=== PATIENT | male | born 2000 | race Caucasian/White ===

== ENCOUNTER 2021-04-08 14:34 | Inpatient (IN) | payer OTHER ==
[~2021-04-08 14:34] MED LIST: Iopamidol-370 76% 500 ML 1 ML ONE
[2021-04-08] MEDS ORDERED: Fentanyl 100 MCG/2 ML VIAL ONE ×3 (15:07→22:16)
[2021-04-08 15:09] LABS: #Basophils 0.1 thou/uL (0.0-0.2); #Eosinphils 0.2 thou/uL (0.0-0.7); #Lymphocytes 2.8 thou/uL (1.20-3.40); #Monocytes 0.9 thou/uL (0.11-0.59); #Neutrophils 8.6 thou/uL (1.40-6.50); %Basophils 0.5 % (0.0-1.0); %Eosinophils 1.8 % (0.0-10.0); %Monocytes 7.2 % (0.0-4.0); %Neutrophils 68.4 % (31.0-61.0); Hemoglobin 16.5 g/dL (14.0-18.0); Mean Corpuscular HGB CONC 33.7 g/dL (32.0-36.0); Mean Corpuscular Hemoglobin 29.6 pg (25.0-35.0); Mean Corpuscular Volume 87.7 fL (78.0-98.0); Mean Platelet Volume 6.8 fL (7.4-10.4); Platelet Count 282 thou/uL (130-400); RBC Distribution Width 11.8 % (11.5-14.5); Red Blood Cell (RBC) Count 5.57 mill/uL (4.00-5.20); White Blood Cell (WBC) Count 12.6 thou/uL (4.8-10.8)
[2021-04-08] MEDS ORDERED: hydrALAZINE 20 MG/ML VIAL SLOW IVP PRN (15:19)
[2021-04-08] MEDS ORDERED: Promethazine HCl 25 MG/ML VIAL IM PRN ×2 (15:19→20:13)
[2021-04-08] MEDS ORDERED: Cyclobenzaprine 10 MG TAB PO PRN (15:27)
[2021-04-08 15:32] LABS: ALT (SGPT) 30 U/L (8-55); AST (SGOT) 75 U/L (10-45); Albumin 4.5 g/dL (3.5-5.0); Alkaline Phosphatase 108 U/L (50-130); Anion Gap 13 mmol/L (10-20); BUN (Urea Nitrogen) 11 mg/dL (8.4-21.0); Bilirubin, Total 0.6 mg/dL (0.2-1.2); Calc. Creatinine Clearance 0 mL/min (70-130); Calcium 9.5 mg/dL (7.8-10.44); Carbon Dioxide 25 mmol/L (22-29); Chloride 104 mmol/L (98-107); Globulin 3.3 g/dL (2.4-3.5); Glucose 110 mg/dL (70-105); Potassium 3.8 mmol/L (3.5-5.1); Protein, Total 7.8 g/dL (6.0-8.3); Sodium 138 mmol/L (136-145)
[2021-04-08] MEDS ORDERED: Morphine 4 MG/ML VIAL ONE (16:06)
[2021-04-08] MEDS ORDERED: CEFAZOLIN 2 GM in Premix Bag 1 BAG IVPB SCH (16:30)
[2021-04-08 16:57] LABS: SARS-CoV-2 NAA Rapid Test Not Detected (NotDetected)
[2021-04-08] MEDS ORDERED: Ferrous Sulfate 325 MG TAB PO SCH (17:00)
[2021-04-08] MEDS ORDERED: HYDROmorphone 0.5 MG/0.5 ML SYRINGE ONE ×4 (17:29→21:10)
[2021-04-08] MEDS ORDERED: Fentanyl 250 MCG/5 ML VIAL ONE (17:32)
[2021-04-08] MEDS ORDERED: Glycopyrrolate 0.2 MG/ML 5 ML SYRINGE ONE (18:05)
[2021-04-08] MEDS ORDERED: Rocuronium Bromide 10 MG/ML (10ML VIAL) ONE (18:05)
[2021-04-08] MEDS ORDERED: PROPOFOL 200 MG/20 ML VIAL ONE (18:05)
[2021-04-08] MEDS ORDERED: Succinylcholine 200 MG/10 ml SYRINGE FS ONE (18:05)
[2021-04-08] MEDS ORDERED: ePHEDrine 50 MG/ML VIAL ONE (18:05)
[2021-04-08] MEDS ORDERED: Lidocaine 1% PF 5 ML VIAL ONE (18:05)
[2021-04-08] MEDS ORDERED: HYDROmorphone 2 MG/ML VIAL SLOW IVP PRN (20:13)
[2021-04-08] MEDS ORDERED: Promethazine HCl 25 MG/ML VIAL IVPB PRN (20:13)
[2021-04-08] MEDS ORDERED: Ondansetron HCl/PF 4 MG/2 ML Vial IVP PRN (20:13)
[2021-04-08] MEDS ORDERED: Ketorolac Tromethamine 30 MG/ML VIAL IVP PRN (20:13)
[2021-04-08] MEDS ORDERED: Promethazine HCl 25 MG/ML VIAL ONE (20:31)
[2021-04-08] MEDS ORDERED: TETANUS, DIPHTHERIA TOX,ADULT (TDVAX) 0.5 ML VIAL IM ONE (22:00)
[2021-04-08] MEDS: traMADol HCl 50 MG TAB PO SCH ×2 (23:54→23:58)
[2021-04-08] MEDS: Ascorbic Acid 500 mg Chewable Tablet PO SCH (23:54)
[2021-04-08] MEDS: Acetaminophen 325 MG TAB PO SCH ×2 (23:54→23:57)
[2021-04-08] MEDS: Senokot S 8.6-50 MG TAB PO SCH (23:55)
[2021-04-08] MEDS: Gabapentin 300 MG CAP PO SCH (23:58)
[2021-04-09] MEDS: Famotidine/PF 20 mg/2ml Vial SLOW IVP SCH ×2 (00:01→08:24)
[2021-04-09] MEDS: CEFAZOLIN 2 GM in Premix Bag 1 BAG IVPB SCH ×2 (00:06→08:15)
[2021-04-09 01:53] VITALS: BMI 28.8
[2021-04-09] MEDS: Morphine 2 MG/ML VIAL SLOW IVP PRN ×2 (02:14→08:20)
[2021-04-09] MEDS: traMADol HCl 50 MG TAB PO PRN (05:50)
[2021-04-09] MEDS: traMADol HCl 50 MG TAB PO SCH ×4 (05:50→23:23)
[2021-04-09] MEDS: Acetaminophen 325 MG TAB PO SCH ×4 (05:51→23:22)
[2021-04-09 06:25] LABS: INR-International Normal Ratio 1.1; Prothrombin Time 14.3 sec (12.0-14.7)
[2021-04-09 06:26] LABS: PTT 24.5 sec (22.9-36.1)
[2021-04-09 06:27] LABS: #Monocytes 0.9 thou/uL (0.11-0.59); #Neutrophils 7.9 thou/uL (1.40-6.50); %Eosinophils 0.1 % (0.0-10.0); %Lymphocytes 10.4 % (28.0-48.0); %Neutrophils 80.5 % (31.0-61.0); Hemoglobin 13.6 g/dL (14.0-18.0); Mean Corpuscular HGB CONC 34.9 g/dL (32.0-36.0); Mean Corpuscular Hemoglobin 30.5 pg (25.0-35.0); Mean Corpuscular Volume 87.3 fL (78.0-98.0); Mean Platelet Volume 6.9 fL (7.4-10.4); Platelet Count 244 thou/uL (130-400); RBC Distribution Width 11.8 % (11.5-14.5); Red Blood Cell (RBC) Count 4.46 mill/uL (4.00-5.20); White Blood Cell (WBC) Count 9.8 thou/uL (4.8-10.8)
[2021-04-09 06:28] LABS: Anion Gap 14 mmol/L (10-20); BUN (Urea Nitrogen) 12 mg/dL (8.4-21.0); Calc. Creatinine Clearance 228 mL/min (70-130); Calcium 9.1 mg/dL (7.8-10.44); Carbon Dioxide 22 mmol/L (22-29); Chloride 104 mmol/L (98-107); Glucose 129 mg/dL (70-105); Potassium 5.1 mmol/L (3.5-5.1); Sodium 135 mmol/L (136-145)
[2021-04-09] MEDS ORDERED: Ketorolac Tromethamine 30 MG/ML VIAL IVP PRN (08:26)
[2021-04-09] MEDS: Senokot S 8.6-50 MG TAB PO SCH ×2 (08:26→21:16)
[2021-04-09] MEDS: Ascorbic Acid 500 mg Chewable Tablet PO SCH ×2 (08:26→21:16)
[2021-04-09] MEDS: Gabapentin 300 MG CAP PO SCH ×3 (08:27→21:16)
[2021-04-09] MEDS: Ferrous Sulfate 325 MG TAB PO SCH ×2 (08:27→21:16)
[2021-04-09] MEDS ORDERED: tiZANidine HCl 4 MG TAB PO PRN (08:27)
[2021-04-09] MEDS: Polyethylene Glycol 3350 17 GM Packet PO SCH (08:28)
[2021-04-10] MEDS: Acetaminophen 325 MG TAB PO SCH ×4 (06:22→23:39)
[2021-04-10] MEDS: traMADol HCl 50 MG TAB PO SCH ×4 (06:23→23:39)
[2021-04-10] MEDS: Ferrous Sulfate 325 MG TAB PO SCH ×2 (08:45→20:32)
[2021-04-10] MEDS: Ascorbic Acid 500 mg Chewable Tablet PO SCH ×2 (08:46→20:32)
[2021-04-10] MEDS: Gabapentin 300 MG CAP PO SCH ×3 (08:46→20:32)
[2021-04-10] MEDS: Polyethylene Glycol 3350 17 GM Packet PO SCH (08:48)
[2021-04-10] MEDS: Senokot S 8.6-50 MG TAB PO SCH ×2 (08:48→20:32)
[2021-04-10] MEDS: traMADol HCl 50 MG TAB PO PRN (10:05)
[2021-04-10] MEDS: Enoxaparin Sodium 40 MG/0.4 ML SYRINGE SC SCH (20:33)
[2021-04-11] MEDS: traMADol HCl 50 MG TAB PO SCH ×4 (06:30→23:57)
[2021-04-11] MEDS: Acetaminophen 325 MG TAB PO SCH ×4 (06:30→23:56)
[2021-04-11] MEDS: Polyethylene Glycol 3350 17 GM Packet PO SCH (08:14)
[2021-04-11] MEDS: Gabapentin 300 MG CAP PO SCH ×3 (08:14→20:24)
[2021-04-11] MEDS: Senokot S 8.6-50 MG TAB PO SCH ×2 (08:14→20:24)
[2021-04-11] MEDS: Ascorbic Acid 500 mg Chewable Tablet PO SCH ×2 (08:15→20:24)
[2021-04-11] MEDS: Ferrous Sulfate 325 MG TAB PO SCH ×2 (08:15→20:24)
[2021-04-11] MEDS: Enoxaparin Sodium 40 MG/0.4 ML SYRINGE SC SCH (20:24)
[2021-04-11] MEDS: Ondansetron PF 4 MG/2 ML Vial IVP PRN (22:02)
[2021-04-12 05:29] LABS: Hemoglobin 8.2 g/dL (14.0-18.0)
[2021-04-12] MEDS: Acetaminophen 325 MG TAB PO SCH ×2 (06:34→11:57)
[2021-04-12] MEDS: traMADol HCl 50 MG TAB PO SCH ×2 (06:35→11:56)
[2021-04-12] MEDS: Gabapentin 300 MG CAP PO SCH ×2 (08:01→15:15)
[2021-04-12] MEDS: Ferrous Sulfate 325 MG TAB PO SCH (08:01)
[2021-04-12] MEDS: Ascorbic Acid 500 mg Chewable Tablet PO SCH (08:01)
[2021-04-12] MEDS: Senokot S 8.6-50 MG TAB PO SCH (08:01)
[2021-04-12] MEDS: Polyethylene Glycol 3350 17 GM Packet PO SCH (08:02)
[2021-04-12] MEDS: Ondansetron PF 4 MG/2 ML Vial IVP PRN (09:15)
[2021-04-12 16:14] VITALS: BP 130/75; TEMP 98.3
== END 2021-04-12 18:15 | disposition home health service (06) | DRG 481 ==
LOC: ERS 14:34 → SDC/OP 17:08 → SJJU 17:09
PROVIDERS: ADMIT Surgery; ATTEND Surgery
PROC: 0QS906Z Reposition Left Femoral Shaft with Intramedullary Internal Fixation Device, Open Approach (ICD-10-PCS; principal; 2021-04-08)
PROC: 0JQP0ZZ Repair Left Lower Leg Subcutaneous Tissue and Fascia, Open Approach (ICD-10-PCS; 2021-04-08)
PROC: 0S9C0ZZ Drainage of Right Knee Joint, Open Approach (ICD-10-PCS; 2021-04-08)
PROC: 0HDLXZZ Extraction of Left Lower Leg Skin, External Approach (ICD-10-PCS; 2021-04-08)
PROC: 0LBR0ZZ Excision of Left Knee Tendon, Open Approach (ICD-10-PCS; 2021-04-08)
DX: S72.302A Unspecified fracture of shaft of left femur, initial encounter for closed fracture (principal); D62 Acute posthemorrhagic anemia; S81.012A Laceration without foreign body, left knee, initial encounter; S81.011A Laceration without foreign body, right knee, initial encounter; V89.2XXA Person injured in unspecified motor-vehicle accident, traffic, initial encounter; Y92.9 Unspecified place or not applicable
CPT/HCPCS: 36415; 70450; 71260; 72125; 72170; 74177; 76000; 80048; 80053; 85014; 85018; 85025; 85610; 85730; 86850; 86900; 86901; 96365; 96375; C1713; G0390; J0690; J1170; J1650; J1885; J2270; J2405; J2550; J2704; J3010; J3490; Q9967; S0028; U0002; U0005